=== PATIENT | female | born 1955 | race Two or more races ===

== ENCOUNTER 2022-04-28 11:45 | Outpatient (REF) | payer MEDICARE, MEDICAID, SELFPAY ==
--- NOTE | ~2022-04-28 | XR_ITS ---
EXAMINATION: XR KNEE, RIGHT CLINICAL INFORMATION: Acute pain. COMPARISON: None. TECHNIQUE: AP and lateral views of the right knee. FINDINGS: There is no evidence of acute fracture or dislocation of the right knee. There appears to be a small knee effusion. There is mild spurring at the patellofemoral joint. No destructive bony lesions are identified. XR/XR knee RT 2V IMPRESSION: Small effusion with mild patellofemoral joint degenerative change.
== END 2022-04-28 11:46 | disposition home or self-care (01) ==
LOC: HO.XRAY 11:45
PROVIDERS: PCP Pediatrics; Visit Provider Pediatrics
DX: R60.0 Localized edema (principal); M25.561 Pain in right knee
CPT/HCPCS: 73560

== ENCOUNTER 2022-06-12 08:35 | Outpatient (REF) | payer MEDICARE, MEDICAID, SELFPAY | END 2022-06-12 08:36 | disposition home or self-care (01) | LOC: HO.HOSX 08:35 | PROVIDERS: Visit Provider Physician Assistant | DX: Z13.89 Encounter for screening for other disorder (principal) ==

== ENCOUNTER 2023-07-23 08:51 | Outpatient (REF) | payer MEDICARE, MEDICAID, SELFPAY | END 2023-07-23 08:52 | disposition home or self-care (01) | LOC: HO.MAMMO 08:51 | PROVIDERS: PCP Pediatrics; Visit Provider Pediatrics | DX: Z12.31 Encounter for screening mammogram for malignant neoplasm of breast (principal) | CPT/HCPCS: 77063; 77067 ==

== ENCOUNTER → 2023-07-23 09:15 | Outpatient (BNV) | payer MEDICARE, MEDICAID, SELFPAY | PROVIDERS: PCP Pediatrics; Visit Provider Radiology Diagnostic Radiology | DX: Z12.31 Encounter for screening mammogram for malignant neoplasm of breast (principal) | CPT/HCPCS: 77063; 77067 ==

== ENCOUNTER 2023-11-19 09:04 | Outpatient (REF) | payer MEDICARE, MEDICAID, SELFPAY ==
[2023-11-19 15:28] LABS: Cholesterol 194 mg/dL (<200); HDL Cholesterol 58 mg/dL (>40); LDL Cholesterol Calculated 113 mg/dL (<100); Triglycerides 118 mg/dL (<150)
== END 2023-11-19 09:05 | disposition home or self-care (01) ==
LOC: HO.CHCLDS 09:04
PROVIDERS: Visit Provider Pediatrics
DX: I10 Essential (primary) hypertension (principal); E78.5 Hyperlipidemia, unspecified
CPT/HCPCS: 36415; 80061

== ENCOUNTER 2024-01-14 09:49 | Outpatient (REF) | payer MEDICARE, MEDICAID, SELFPAY ==
[2024-01-14 14:10] LABS: MANUAL DIFF FLAG NO
[2024-01-14 14:27] LABS: Basophils Absolute Auto 0.1 X10*3/uL (0.0-0.2); Basophils Percent Auto 0.7 % (0-2); Eosinophils Absolute Auto 1.3 X10*3/uL (0.0-0.4); Eosinophils Percent Auto 13.2 % (0-4); Hematocrit 44.1 % (37.0-47.0); Hemoglobin 13.8 g/dl (12.0-16.0); Imm Gran Abs Auto 0.04 X10*3/uL (0.00-0.03); Imm Gran Pct Auto 0.4 % (0.0-0.4); Lymphocytes Absolute Auto 2.8 X10*3/uL (1.2-4.9); Lymphocytes Percent Auto 29.3 % (20-40); Mean Corpuscular HGB Conc 31.3 g/dl (31.0-35.0); Mean Corpuscular Hemoglobin 28.5 pg (27.0-33.0); Mean Corpuscular Volume 91.1 fL (80.0-98.0); Monocytes Absolute Auto 0.8 X10*3/uL (0.1-1.2); Monocytes Percent Auto 8.3 % (2-11); Neutrophils Absolute Auto 4.6 x10*3/uL (2.0-8.3); Neutrophils Percent Auto 48.1 % (45-73); Platelet Count 325 X10*3/uL (160-400); Red Blood Count 4.84 X10*6/uL (4.20-5.50); Red Cell Distribution Width 13.5 % (11.0-16.0); White Blood Count 9.6 X10*3/uL (4.8-10.8)
[2024-01-14 14:30] LABS: Prothrombin Time 11.9 SEC (10.9-12.4)
[2024-01-14 15:41] LABS: Alanine Aminotransferase 22 U/L (0-31); Albumin Level 4.1 g/dL (3.5-5.0); Alkaline Phosphatase 100 U/L (39-117); Anion Gap 15 (12-20); Aspartate Amino Transferase 20 U/L (5-31); Bilirubin Direct 0.1 mg/dL (0.0-0.5); Bilirubin Total 0.4 mg/dL (0.0-1.0); Blood Urea Nitrogen 14 mg/dL (9-16); Calcium 9.9 mg/dL (8.4-10.2); Carbon Dioxide 24 mmol/L (22-29); Chloride 109 mmol/L (96-108); Estimated Glomerular Filt Rate > 60; Glucose Random 76 mg/dL (60-115); Potassium 4.6 mmol/L (3.3-5.1); Sodium 143 mmol/L (135-145); Total Protein 7.7 g/dL (6.5-8.0)
== END 2024-01-14 09:50 | disposition home or self-care (01) ==
LOC: HO.CHCLDS 09:49
PROVIDERS: Visit Provider Pediatrics
DX: Z01.818 Encounter for other preprocedural examination (principal); Z01.810 Encounter for preprocedural cardiovascular examination; I49.8 Other specified cardiac arrhythmias
CPT/HCPCS: 36415; 80048; 80076; 85025; 85610

== ENCOUNTER → 2024-02-08 13:35 | Outpatient (REF) | payer MEDICARE, MEDICAID, SELFPAY ==
--- NOTE | 2024-02-08 14:00 | CA_ITS ---
Transthoracic Echocardiogram Patient (Last, First, Middle): Kristen Schroeder, Gender: Female Date of : 1955 Age: 68 Procedure Date: 02/08/2024 Procedure Type: Transthoracic Echocardiogram Location: OP Height: 149.86 cm Weight: 89.81 kg BSA: 1.84 m2 Heart Rate: 63 bpm BP: 148 / 80 mmHg Shoe Ironer: SB Referring MD: Tobi Tinoco MD Symptoms: I35.8 Aortic Murmur Study Quality: Adequate w contrast ECG Rhythm: Sinus Conclusions: - The left ventricular systolic function is hyperdynamic. The visually estimated ejection fraction is >70%. - There is moderate septal asymmetric hypertrophy. - No obvious valvular pathology seen on this study. Findings Procedure Information Contrast agent, definity, is being given per protocol without apparent complications. The quality of the study was technically difficult. The study quality is limited by patients body habitus. Left Ventricle Normal left ventricular cavity size. The left ventricular systolic function is hyperdynamic. The visually estimated ejection fraction is >70%. There is no evidence of regional wall motion abnormalities. Evidence suggests grade I (mild) diastolic dysfunction. There is moderate septal asymmetric hypertrophy. Right Ventricle Normal right ventricular cavity size and systolic function. Atria Both atria are normal in size. Aortic Valve There is a normal trileaflet aortic valve. There is no aortic valve stenosis. There is no aortic valve regurgitation. Mitral Valve There is mild mitral annular calcification. There is no mitral valve regurgitation. There is no mitral valve stenosis. Pulmonic Valve The pulmonic valve is likely normal. Tricuspid Valve There is trace tricuspid valve regurgitation. Tricuspid regurgitation envelope is inadequate for calculation of right ventricular systolic pressure. Great Vessels The asc aorta is normal in size. Venous The inferior vena cava is normal in size and collapses greater than 50% with inspiration. Pericardium/Pleural There is no evidence of pericardial effusion. Prior Study Comparison No prior study available for comparison. Recommendations, Care & Conclusions No obvious valvular pathology seen on this study. Measurements 2D Linear Measurements IVSd: 1.38 0.6-0.9/0.6-1.0 cm LVIDd: 4.43 3.9-5.3/4.2-5.9 cm LVIDd Index: 2.41 2.4-3.2/2.2-3.1 cm/m2 LVIDs: 2.32 2.0-3.6 cm LVPWd: 0.72 0.7-1.1 cm LA Diam: 3.40 2.7-3.8/3.0-4.0 cm LAIDs Index: 1.85 1.5-2.3 cm/m2 LV Mass: 199.43 67-162/88-224 g LV Mass Index: 108.39 43-95/49-115 g/m2 LVOT Diam: 1.90 3.0+(-)1.3 cm 2D Systolic Function EF 4C: 75.10 >55% EF 2C: 72.30 >55% EF BiP: 74.10 >55% Mitral Valve MV Pk E: 1.11 MV PK A: 1.20 MV Decel Time: 191.00 E/A: 0.90 E'Lateral: 7.07 E'Medial: 6.20 E/E' Med: 17.90 E/E' Lat: 15.70 PHT: 56.00 MVA PHT: 3.93 Decel [place]: 5.80 Aortic Valve AoV Pk Ben: 1.68 AoV Pk Grad: 11.00 LISA: 2.16 LVOT LVOT Pk Ben: 1.28 LVOT Mn Ben: 0.84 LVOT VTI: 0.28 LVOT Pk Grad: 7.00 LVOT Mn Grad: 3.00 LVOT Diam: 1.90 LVOT Area: 2.84 Diastolic Function MV Pk E: 1.11 MV Pk A: 1.20 E/A: 0.90 E'Medial: 6.20 E/E' Med: 17.90 E' Laterial: 7.07 E/E' Lat: 15.70 Right Ventricle TAPSE (mm): 20.70 TVS' Ben: 10.30 Tricuspid Valve RA Press: 3.00 Great Vessels Aorta Sinus of Valsalva: 2.70 2.0-3.5 cm Ao Asc: 3.30 2.1-3.4 cm Pulmonary Veins Pulm Vein S/D 1.20 Pulmonary Valve PV Pk Ben: 1.15 Peak PV Grad: 5.00 Updated in Other Vendor System with Status of Final Grey Newell MD electronically signed on 02/09/2024 8:42:09 AM with status of Final
== END ==
LOC: HO.CARD 13:35
PROVIDERS: PCP Pediatrics; Visit Provider Internal Medicine
DX: I35.8 Other nonrheumatic aortic valve disorders (principal)
CPT/HCPCS: 93306; Q9957

== ENCOUNTER → 2024-02-08 14:00 | Outpatient (BNV) | payer MEDICARE, MEDICAID, SELFPAY | PROVIDERS: PCP Pediatrics; Visit Provider Internal Medicine | DX: I42.2 Other hypertrophic cardiomyopathy (principal) | CPT/HCPCS: 93306 ==

== ENCOUNTER 2024-10-09 11:59 | Outpatient (AMB) | payer MEDICARE, MEDICAID, SELFPAY ==
--- OUTSIDE RECORDS SUMMARY | 2024-10-09 12:42 | XMS_ITS | Encounter Summary ---
Author Organization [employer] Address [address] 7 [place] [address] Care Team Providers Care Program Manager Name Role Phone Jie Cordova MD Primary Care Provider [phone] Reason for Visit * Reason Onset Date Comments Appointment Request 10/06/2024 Encounter Details Date Type Department Care Team ([facility] st Contact Info) Description 10/06/2024 Telephone [facility] [address] [place] [address] Jie Cordova MD [address] [place] [id number] Appointment Request Social History Tobacco Use Types Packs/Day Years Used Date Smoking Tobacco: Never Passive Smoke Exposure: Never Smokeless Tobacco: Never Alcohol Use Standard Drinks/Week Comments Never 0 (1 standard drink = 0.6 oz pur e alcohol) Alcohol Answer Date Recorded Frequency of Alcohol Consumption Not on file 01/14/2024 Average Number of Drinks Not on file 024 Frequency of Binge Drinking Not on file 10/2023 Score 0 01/14/2024 Depression Answer Date Recorded Patient Health Questionnaire-9 Score 14 05/16/2024 Patient Health Questionnaire-9 Score 14 05/16/2024 Last PHQ-9: Questionnaire Data Not on file 0 05/16/2024 Housing Stability Answer Date Recorded What is your housing situation today? I have dilan fowler 05/16/[address] you li ve. Do you have problems with any of the following? None of the above 05/16/2024 Food Insecurity Answer Date Recorded Within the past 12 months, y ou worried that your food would run out before you got money to buy more: Sometimes True 2024 Within the past 12 months,th e food you bought just didn't last and you didn't have enough money to get more: Never True 05/16/2024 Transportation Answer Date Recorded In the past 12 months, has l ack of transportation kept you from medical appts, meetings, work or from getting things needed for daily living? No 05/16/2024 Utilities Answer Date Recorded In the past 12 months, has t he electric, gas, oil or water company threatened to shut off services in your home? No 05/16/2024 Depression Answer Date Recorded Patient Health Questionnaire-2 Score 6 05/16/2024 Internet Access Answer Date Recorded Internet Access Q1 Yes 05/16/2024 Internet Access Q2 Not on file 05/16/2024 Comments No Sex and Gender Information Value Date Recorded Sex Assigned at Female 01/05/2022 10:20 AM EDT Legal Sex Female 10:20 AM EDT Gender Identity Female 01/05/2022 10:20 AM EDT Sexual Orientation Straight 01/05/2022 10 :20 AM EDT documented as of this encounter Miscellaneous Notes * Telephone Encounter - Maria Fernanda Oglesby RN - 10/06/2024 4:24 PM EDT Noted. Patient did not go to walk-in clinic after BP visit on 10/05/24. Patient educated on importance of being evaluated d/t elevated BP and her son and patient verbally agreed to go to walk-in. They did not go on 10/05/24. * Telephone Encounter - Soni Padilla - 10/06/2024 3:01 PM EDT Tc from pt son with pt on the line. Name and confirmed. Pt requesting to follow up with PCP. Ptscheduled with PCP on 10/13. Pt agreed * Telephone Encounter - Petty Pardo - 10/06/2024 9:53 AM EDT Tc from from pt Son requesting an follow appt deu to walk in center visity from 10/05. Please contact pt at [phone] Need biology department chair Son phone (not on HIPAA) [phone] No need biology department chair documented in this encounter Plan of Treatment Upcoming Encounters Date Type Department Care Team (Late st Contact Info) Description 10/13/2024 11:15 AM EDT Office Visit [facility] [address] [place] [address] Jie Cordova MD [address] [place] [address] documented as of this encounter Goals Goal Patient Goal Type Associated Problems Recent Progress Patient-Stated? Author Blood Pressure < 150/90 Blood Pressure 182/75(2024 2:27 PM EDT) No Chester Calhoun, PharmD Note: No hx CKD/DM Patient will adhere to medication regimen General No Chester Calhoun, PharmD documented as of this encounter Visit Diagnoses Not on filedocumented in this encounter Additional Health Concerns Assessment Noted Time PHQ-9 Depression Total Score: 14 025 10:50 AM EDT documented as of this encounter Care Teams Program Manager Relationship Specialty Start Date End Date Jie Cordova MD [address] [place] [address] PCP - General Family Medicine 03/08/18 documented as of this encounter
--- OUTSIDE RECORDS SUMMARY | 2024-10-09 12:42 | XMS_ITS | Clinical Summary ---
Author Organization [facility] Address [address] [place] [address] Phone Care Team Providers Care Aviation Warfare Systems Operator Name Role Phone Jie Cordova MD Primary Care Provider [phone] Allergies Active Allergy Reactions Criticality Noted Date Comments Ibuprofen Palpitations 01/31/2024 Penicillin V Unknown 01/31/2024 Medications albuterol HFA (ProAir HFA) 90 mcg/actuation inhaler Inhale 2 puffs by mouth every 4 (four) hours if needed. 3 Active azelastine (ASTELIN) 137 mcg (0.1 %) nasal spray Administer 2 sprays into each nostril 2 (two) times a day. 2 Active budesonide (Pulmicort Flexhaler) 180 mcg/actuation inhaler Inhale 2 puffs by mouth 2 (two) times a day. 4 Active cholecalciferol (VITAMIN D-3) 25 mcg (1,000 unit) tablet Take 1 tablet (1,000 Units total) by mouth 1 (one) time each day in the morning. 4 Active dicyclomine (BENTYL) 20 mg tablet Take 1 tablet (20 mg total) by mouth 4 (four) times a day (before meals and nightly). 4 11/16/19 25 Active FLUoxetine (PROzac) 40 mg capsule Take 1 capsule (40 mg total) by mouth daily. 4 Active ipratropium-alb uteroL (DUONEB) 0.5-2.5 mg/3 mL nebulizer solution Take by nebulization 4 (four) times a day. 2 Active loratadine (CLARITIN) 10 mg tablet Take 1 tablet (10 mg total) by mouth 1 (one) time each day in the morning. 4 Active metoprolol succinate (TOPROL-XL) 100 mg 24 hr tablet Take 1 tablet (100 mg total) by mouth daily. 4 Active pantoprazole (PROTONIX) 20 mg EC tablet Take 1 tablet (20 mg total) by mouth 1 (one) time each day in the morning. 4 Active pseudoephedrine (Sudogest) 30 mg tablet Take 1 tablet (30 mg total) by mouth every 6 (six) hours if needed. 2 Active rosuvastatin (CRESTOR) 5 mg tablet Take 1 tablet (5 mg total) by mouth 1 (one) time each day in the morning. 4 Active valsartan-hydro CHLOROthiazide (DIOVAN-HCT) 160-25 mg per tablet Take 1 tablet by mouth daily. 4 Active gabapentin (Neurontin) 400 mg capsule Take 1 capsule (400 mg total) by mouth 2 (two) times a day. 60 each 4 Active povidone-iodine (Betadine) 10 % topical solution Apply topically 1 (one) time each day. 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 Surgical History Surgery Date Site/Laterality Comments NO PAST SURGERIES Medical History Medical History Date Comments Hypertension Hyperlipidemia Asthma Achilles rupture, right Social History Tobacco Use Types Packs/Day Years Used Date Smoking Tobacco: Never Smokeless Tobacco: Never Tobacco Cessation:Counseling Given: Not Answered Alcohol Use Standard Drinks/Week Comments Never 0 (1 standard drink = 0.6 oz pur e alcohol) Interpersonal Safety Answer Date Record ed Physical Abuse 02/11/2024 Verbal Abuse 02/11/2024 Comments No Sex and Gender Information Value Date Recorded Sex Assigned at Female 02/11/2024 7:57 AM EST Legal Sex Female 11:06 AM EDT Gender Identity Female 02/11/2024 7:57 AM EST Sexual Orientation Straight 02/11/2024 7: 57 AM EST Obstetrics History Last Filed Vital Signs Vital Sign Reading Time Taken Comments Blood Pressure 129/56 02/11/2024 12:20 PM EST Pulse 71 02/11/2024 12:20 PM EST Temperature 36.5 C (97.7 F) 02/11/2024 12:20 PM EST Respiratory Rate 18 02/11/2024 12:20 PM EST Oxygen Saturation 95% 02/11/2024 12:20 PM EST Inhaled Oxygen Concentration - - Weight 84.4 kg (186 lb) 05/25/2024 1:56 PM EDT Height 157.5 cm (5' 2.01 ) 04/06/2024 2:50 PM ES T Body Mass Index 34.01 04/06/2024 2:50 PM EST Plan of Treatment Health Maintenance Due Date Last Done Comments Breast Cancer Screening 1955 Zoster Vaccines (1 of 2) 2004 RSV Immunization Adult Patients (1 - Risk 60-74 years 1-dose series) 2014 Colorectal Cancer Screening: Colonoscopy 09/30/2023 Hepatitis C Screening 09/30/2023 Medicare Annual Wellness Visit 09/30/2023 Osteoporosis Screening (Bone Density Screening) 09/30/2023 Social Influencers of Health Screening 09/30/2023 COVID-19 Vaccine ( season) 2023 02/10/2021, 06/28/2020, 05/31/2020 Depression Screening 03/08/2024 Influenza Vaccine (#1) 2024 , 01/15/2023, 01/15/2022, Additional history exists Hypertension/CHF/CAD Annual BMP Blood Test 01/13/2025 01/14/2024 Falls Risk Assessment 02/10/2025 02/11/2024 Cholesterol Screening (Lipid Panel) 11/18/2028 11/19/2023 DTaP,Tdap,and Td Vaccines (2 - Td or Tdap) 01/17/2029 01/17/2019 Pneumococcal Vaccine: 50+ Years Completed 04/30/2022 HIB Vaccines Aged Out No longer eligi ble based on patient's age to complete this topic HPV Vaccines Aged Out No longer eligi ble based on patient's age to complete this topic Hepatitis A Vaccines Aged Out No long er eligible based on patient's age to complete this topic Hepatitis B Vaccines Aged Out No long er eligible based on patient's age to complete this topic IPV Vaccines Aged Out No longer eligi ble based on patient's age to complete this topic MMR Vaccines Aged Out No longer eligi ble based on patient's age to complete this topic Meningococcal ACWY Vaccine Aged Out N o longer eligible based on patient's age to complete this topic Meningococcal B Vaccine Aged Out No l onger eligible based on patient's age to complete this topic RSV Immunization Patients Under 20 months Aged Out No longer eligible based on patient's age to complete this topic Varicella Vaccines Aged Out No longer eligible based on patient's age to complete this topic Medical Devices Implanted Type Area Hotel Lobby Concierge Device Identifier Shelf Expiration Date Model / Serial / Lot Implant Bioinductive W/Arth Del Med - Sn/A - [id number] Implanted:Qty: 1 on 02/11/2024 by Kevan Rogers DPM at [facility] [employer] Right: Achilles Tendon [employer] - ENDOSCOPY 10/07/2026 [id number] / N/A / [id number] Insurance MEDICARE MEDICAID - [place] Care Teams Aviation Warfare Systems Operator Relationship Specialty Start Date End Date Jie Cordova MD [address] [place] [address] [phone] PCP - General 06/04/23
--- NOTE | 2024-10-09 13:15 | MHC.OFFWIV ---
Intake Vital Signs 10/09/24 13:17 Height 5 ft 1 in Weight 188 lb 8 oz BMI 35.6 BP 158/76 H Blood Pressure Location Lt brachial Position Sitting Pulse 62 Pulse Source Pulse Oximeter Temp 97.6 F Temp Source Oral Pulse Oximetry (%) 96 Oxygen Delivery Method Room Air Intake Visit Reasons: MARKETING RESEARCHER-sob Allergies Penicillins Allergy (Severe, Verified 10/09/24 13:21) Rash Do you need a note to return to daycare/school/sports/work: No HPI HPI Comments History of Present Illness Details Moldovan video interpeter declined, she wants her son to interpret. History - The patient is a 68-year-old female presenting with respiratory distress and wheezing. - Respiratory distress for one week with congestion and difficulty breathing. - Persistent wheezing and shortness of breath despite inhaler use. - Ellipta inhaler used twice daily with no significant relief. - History of prednisone use during exacerbations. - Cough productive of clear mucus, no fever, sinus pain, or ear pain. Physical Exam General: Cooperative, healthy appearing, comfortable and no acute distress Orientation/consciousness: Patient oriented x3 Limitations: No limitations Head: Normal to inspection Ears: Hearing grossly normal bilaterally, external ears normal and TM's normal bilaterally Nose: Normal external nose present, Normal nares present and No nasal discharge present Face and sinus: Normal facial exam and Yes sinuses nontender Mouth: Normal oral and palatal mucosa present and moist mucous membranes Throat: Yes tonsils normal, Yes uvula midline. Posterior oropharynx erythema, no exudates Eyes: Appearance normal, both eyes and all related structures Neck: Normal visual inspection, full ROM Respiratory: exp wheezing bilaterally. Normal respiratory effort, able to speak in complete sentences, not actively coughing, no respiratory distress, not tachypneic, no tripod positioning and no use of accessory muscles Cardiovascular: Regular rate and rhythm. Normal S1 and S2 Skin: No rashes or lesions noted Neuro: Patient oriented x3 Extremities: Normal to inspection and Yes no clubbing, cyanosis or edema Review of Systems Const All systems reviewed & are unremarkable except as noted in HPI and below Physical Exam Vital Signs: Last Vital Signs Temp 97.6 F 10/09/24 13:17 Pulse 62 10/09/24 13:17 BP 158/76 H 10/09/24 13:17 Pulse Ox 96 10/09/24 13:17 Oxygen Delivery Method Room Air 10/09/24 13:17 BMI result Body Mass Index 35.6 Assessment & Plan Assessment & Plan (1) URI, acute: Code(s): J06.9 - Acute upper respiratory infection, unspecified Plan: Plan - VSS, pt well appearing and PE remarkable for exp wheezes. - Prednisone 40 mg daily for 5 days, start next morning. - Start Z-Jak tonight for anti-inflammatory and antibiotic effect. - Return if symptoms worsen for possible chest x-ray. Patient was informed and verbally consented to the use of an ambient scribe for clinic note documentation during this visit (2) Asthma exacerbation, mild: Code(s): J45.901 - Unspecified asthma with (acute) exacerbation Plan: as above Medications: New azithromycin For 250 mg dose pack: take 500 mg today (day 1), then 250 mg for 4 days (days 2-5) PO 6 tabs 0RF prednisone 40 mg (2 x 20 mg) PO QAM 10 tabs 0RF Coding Level of Care Code New Pt Level 3 (17168) Diagnoses URI, acute J06.9 Asthma exacerbation, mild J45.901
[2024-10-09 13:17] VITALS: BP 158/76; PULSE 62; TEMP 36.4; O2SAT 96; BMI 35.6
== END 2024-10-09 14:09 | disposition home or self-care (01) ==
PROVIDERS: PCP Pediatrics; Visit Provider Physician Assistant
DX: J06.9 Acute upper respiratory infection, unspecified (principal); J45.901 Unspecified asthma with (acute) exacerbation

== ENCOUNTER → 2024-10-09 11:59 | Outpatient (BNVA) | payer MEDICARE, MEDICAID, SELFPAY | PROVIDERS: PCP Pediatrics; Visit Provider Physician Assistant | DX: J06.9 Acute upper respiratory infection, unspecified (principal); J45.901 Unspecified asthma with (acute) exacerbation | CPT/HCPCS: 99202 ==

== ENCOUNTER 2024-12-19 12:58 | Outpatient (REF) | payer MEDICARE, MEDICAID, SELFPAY ==
--- NOTE | ~2024-12-19 | XR_ITS ---
EXAMINATION: XR CHEST CLINICAL INFORMATION: rule out pneumonia COMPARISON: None available. TECHNIQUE: 2 views of the chest were obtained. FINDINGS: The cardiac, hilar, and mediastinal contours are normal. Aortic mural calcifications. Lungs demonstrate mild prominence of the background interstitial markings, with peribronchial thickening noted in the hilar regions suggesting small airways disease. There is no discrete consolidation or focal pneumonia. There is no pneumothorax or pleural effusion. There is no focal osseous or soft tissue abnormality. There are degenerative changes in the spine with a mildly exaggerated thoracic kyphosis. XR/XR chest 2V IMPRESSION: 1. Mild prominence of the background interstitial markings with evidence of small airway thickening suggesting inflammatory airways disease. No discrete focal pneumonia. Electronically signed by: Sudheer Hernandez MD 12/19/2024 04:12 PM EDT
--- OUTSIDE RECORDS SUMMARY | 2024-12-19 11:15 | XMS_ITS | Encounter Summary ---
Author Organization [employer] Address [address] [place] [id number] Care Team Providers Care Nurse School Name Role Phone Jie Cordova MD Primary Care Provider [phone] Reason for Referral * Consultation (Urgent) - Pending Review Specialty Diagnoses / Procedures Referred By Contac t Referred To Contact Pulmonary Disease Diagnoses Severe persistent asthma with exacerbation (HCC) Jie Cordova MD [address] [place] [address] Phone: tel: fax: Referral ID Status Reason Start Date Expiration Date Visits Requested Visits Authorized [id number] Pending Review Specialty Services Required 12/19/2025 1 1 Encounter Details Date Type Department Care Team ([facility] st Contact Info) Description 12/19/2024 11:15 AM EDT Office Visit [facility] [address] [place] [address] Jie Cordova MD [address] [place] [address] Severe persistent asthma with exacerbation (HCC) (Primary Dx); Benign essential hypertension Social History Tobacco Use Types Packs/Day Years [...] AM EDT documented as of this encounter Last Filed Vital Signs Vital Sign Reading Time Taken Comments Blood Pressure 150/90 12/19/2024 11:24 AM EDT Pulse 67 12/19/2024 11:24 AM EDT Temperature - - Respiratory Rate 20 12/19/2024 11:24 AM EDT Oxygen Saturation 96% 12/19/2024 11:24 AM EDT Inhaled Oxygen Concentration - - Weight 84.4 kg (186 lb) 12/19/2024 11:24 AM EDT Height - - Body Mass Index 40.25 05/16/2024 10:02 AM EDT documented in this encounter Progress Notes * Jie Cordova MD - 12/19/2024 11:15 AM EDT Subjective Patient ID: Kristen Peoples is a 69 y.o. female who presents for sick visit. Kristen is a 69 y/o female patient of ours with severe persistent asthma , hypertension, obesity, dyslipidemia,etc.. here as a walk in sick visit for severe asthma attack. Was seen at a local urgent care and given 5 days of prednisone per patient about 2-3 weeks ago.No imaging studies done. States takes care of grand kids and one of them had a runny nose. Wheezing This is a recurrent problem. The current episode started 1 to 4 weeks ago. The problem occurs constantly. The problem has been unchanged. Associated symptoms include coughing, rhinorrhea, shortness of breath and sputum production. Pertinent negatives include no abdominal pain, chest pain, chills, ear pain, fever, headaches, hemoptysis, neck pain, rash, sore throat or vomiting. The symptoms are aggravated by any activity, URIs and weather changes. She has tried beta agonist inhalers, rest and steroid inhaler (used nebulized albuterol and steroid inhalers) for the symptoms. The treatment provided mild relief. Review of Systems Constitutional: Negative for activity change, chills, fever and unexpected weight change. HENT: Positive for rhinorrhea. Negative for ear pain and sore throat. Respiratory: Positive for cough, sputum production, shortness of breath and wheezing. Negative for hemoptysis. Cardiovascular: Negative for chest pain, palpitations and leg swelling. Gastrointestinal: Negative for abdominal pain, blood in stool and vomiting. Endocrine: Negative for polydipsia and polyuria. Genitourinary: Negative for decreased urine volume, difficulty urinating, dysuria and hematuria. Musculoskeletal: Negative for arthralgias, gait problem and neck pain. Skin: Negative for color change and rash. Neurological: Negative for dizziness and headaches. Hematological: Negative for adenopathy. Psychiatric/Behavioral: Negative for dysphoric mood, hallucinations, sleep disturbance and suicidalideas. The patient is not nervous/anxious. Objective BP (!) 150/90 (BP Location: Left arm, Patient Position: Sitting, BP Cuff Size: Adult) Pulse 67 Resp 20 Wt 186 lb (84.4 kg) SpO2 96% BMI 40.25 kg/m?? Physical Exam Constitutional: General: She is not in acute distress. Appearance: Normal appearance. She is not ill-appearing. HENT: Head: Normocephalic. Right Ear: Tympanic membrane and ear canal normal. Left Ear: Tympanic membrane and ear canal normal. Nose: Nose normal. Mouth/Throat: Mouth: Mucous membranes are moist. Pharynx: No oropharyngeal exudate or posterior oropharyngeal erythema. Eyes: Extraocular Movements: Extraocular movements intact. Conjunctiva/sclera: Conjunctivae normal. Pupils: Pupils are equal, round, and reactive to light. Cardiovascular: Rate and Rhythm: Normal rate and regular rhythm. Pulses: Normal pulses. Heart sounds: Normal heart sounds. No murmur heard. Pulmonary: Effort: Pulmonary effort is normal. Prolonged expiration present. No accessory muscle usage, respiratory distress or retractions. Breath sounds: Examination of the right-upper field reveals wheezing. Examination of the left-upperfield reveals wheezing. Examination of the right- middle field reveals wheezing. Examination of the left-middle field reveals wheezing. Examination of the left-lower field reveals wheezing. Wheezing and rhonchi present. Abdominal: Palpations: Abdomen is soft. Musculoskeletal: General: Normal range of motion. Cervical back: Normal range of motion. Right lower leg: No edema. Left lower leg: No edema. Skin: General: Skin is warm. Capillary Refill: Capillary refill takes less than 2 seconds. Findings: No rash. Neurological: General: No focal deficit present. Mental Status: She is alert and oriented to person, place, and time. Mental status is at baseline. Psychiatric: Mood and Affect: Mood normal. Behavior: Behavior normal. Thought Content: Thought content normal. Judgment: Judgment normal. Assessment/Plan Diagnoses and all orders for this visit: Severe persistent asthma with exacerbation ([facility]) Comments: Recieved duoneb plus oral prednisone in office today,felt somewhat improved,stat CXR ordered .Son will take her for stat chest x-ray and I will call them with results.Azithro plus prdnisone taper sent to [facility] pharmacy.Inhalers sorted out for patient,continue arnuity.Referral to pulmonary done. Orders: - ipratropium-albuterol (Duo-Neb) 0.5-2.5 mg/3 mL nebulizer solution 3 mg - predniSONE (Deltasone) tablet 60 mg - XR Chest 2 Views; Future - POCT Rapid Covid-19 BinaxNOW - POCT Rapid Influenza A OSOM - POCT Rapid Influenza B OSOM - Respiratory Viral Panel PCR - Referral to Pulmonology; Future Benign essential hypertension Other orders - albuterol (2.5 MG/3ML) 0.083% nebulizer solution; Take 3 mL (2.5 mg) by nebulization every 6 (six) hours if needed for wheezing. - predniSONE (Deltasone) 20 MG tablet; Take 2 tabs orally daily for 4 days then 1 tab orally daily for 4 days - azithromycin (Zithromax) 250 MG tablet; Take 2 tabs orally on day 1 , then 1 tab orally for 4 more days documented in this encounter Plan of Treatment Scheduled Orders Name Type Priority Associated Diagnoses Orde r Schedule XR Chest 2 Views Imaging Urgent Severe persistent asthma with exacerbation (HCC) Expected: 12/19/2024, Expires: 12/19/2025 Scheduled Referrals Name Type Priority Associated Diagnoses Orde r Schedule Referral to Pulmonology Outpatient Referral Urgent Severe persistent asthma with exacerbation (HCC) Expected: 12/19/2024 (Approximate), Expires: 12/19/2025 documented as of this encounter Goals Goal Patient Goal Type Associated Problems Recent Progress Patient-Stated? Author Blood Pressure < 150/90 Blood Pressure 150/90(2024 11:24 AM EDT) No Chester Calhoun, PharmD Note: No hx CKD/DM Patient will adhere to medication regimen General No Chester Calhoun, PharmD documented as of this encounter Procedures Procedure Name Priority Date/Time Associated Diagnosis Comments POCT INFLUENZA B Routine 12/19/2024 11:3 8 AM EDT Severe persistent asthma with exacerbation (HCC) POCT RAPID COVID ANTIGEN Routine 12/19/2024 11:37 AM EDT Severe persistent asthma with exacerbation (HCC) POCT INFLUENZA A Routine 12/19/2024 11:3 7 AM EDT Severe persistent asthma with exacerbation (HCC) RESPIRATORY VIRAL PANEL PCR Routine 12/19/2024 11:20 AM EDT Severe persistent asthma with exacerbation (HCC) documented in this encounter Results * POCT Rapid Influenza B OSOM (12/19/2024 11:38 AM EDT) [facility] Rapid Influenza B Ag Negative Negative, Indeterminate Swab 12/19/2024 11:3 8 AM EDT us Jie Cordova MD POINT OF CARE TEST ENTER/EDIT ORDERABLES Final Result * POCT Rapid Influenza A OSOM (12/19/2024 11:37 AM EDT) [facility] Rapid Influenza A Ag Negative Negative, Indeterminate Swab Nasopharyngeal structure / Unknown 12/19/2024 11:37 AM EDT us Jie Cordova MD POINT OF CARE TEST ENTER/EDIT ORDERABLES Final Result * POCT Rapid Covid-19 BinaxNOW (12/19/2024 11:37 AM EDT) [facility] Rapid COVID Ag Negative Swab 12/19/2024 11:3 7 AM EDT us Jie Cordova MD POINT OF CARE TEST ENTER/EDIT ORDERABLES Final Result * (ABNORMAL) Respiratory Viral Panel PCR (12/19/2024 11:20 AM EDT) [facility] Adenovirus PCR Not Detected Not Detect. [facility] Bordetella pertussis PCR Not Detected Not Detect. [facility] Comment:Interpret results wi th caution. If B. pertussis isspecifically suspected, additional testing using analternate method is recommended. Bordetella parapertussis PCR Not Detected Not Detect. [facility] Chlamydia pneumoniae PCR Not Detected Not Detect. [facility] Coronavirus 229E PCR Not Detected Not Detect. [facility] Coronavirus HKU1 PCR Not Detected Not Detect. [facility] Coronavirus NL63 PCR Not Detected Not Detect. [facility] Coronavirus OC43 PCR Not Detected Not Detect. [facility] SARS-CoV-2 PCR Not Detected Not Detect. [facility] Comment:SARS-CoV-2 not detec grayson by real-time RT-PCR.Note: If clinical suspicion for Sars-CoV-2 is high, continueto maintain precautions and consider repeat testing.Test results should be interpreted in the context ofclinical findings and other laboratory data.Rare polymorphisms exist that could lead to false-negativeor false-positive results. If results do not match theclinical findings, additional testing should be considered.Results reported to VERONICA GARCIA.This test has been authorized by the FDA under the EmergencyUse Authorization (EUA) for use by authorized laboratories. Influenza A PCR Not Detected Not Detect. [facility] Influenza A Subtype H1 Not Detected Not Detect. [facility] Influenza A H1-2009 PCR Not Detected Not Detect. [facility] Influenza A Subtype H3 Not Detected Not Detect. [facility] Influenza B PCR Not Detected Not Detect. [facility] Human metapneumovirus PCR Not Detected Not Detect. [facility] Rhino/Enterovirus PCR Detected(A) Not Detect. [facility] Mycoplasma pneumoniae PCR Not Detected Not Detect. [facility] Parainfluenza 1 PCR Not Detected Not Detect. [facility] Parainfluenza 2 PCR Not Detected Not Detect. [facility] Parainfluenza 3 PCR Not Detected Not Detect. [facility] Parainfluenza 4 PCR Not Detected Not Detect. [facility] RSV PCR Not Detected Not Detect. [facility] Resp Panel NA Note See Note [facility] Comment:All results must be correlated with clinical findings.Negative results should not be used as the sole basis fordiagnosis, treatment, or other management decisions.A negative result does not exclude the possibility of viralor bacterial infection. Negative results may occur from thepresence of sequence variants in the region targeted by theassay, the presence of inhibitors, an infection caused by anorganism not detected by the panel, or lower respiratorytract infections that are not detected by a nasopharyngealswab specimen. Test results may also be affected byconcurrent antiviral/antibacterial therapy or levels oforganism in the specimen that are below the limit ofdetection for this test.This assay is performed by Multiplexed PCR, utilizing [employer]. Swab 12/19/2024 11:2 0 AM EDT 12/19/2024 2:03 PM EDT us Jie Cordova MD LAB BLOOD ORDERABLES Final Re sult [facility] [address] [place] [address] [phone] documented in this encounter Visit Diagnoses Diagnosis Severe persistent asthma with exacerbation (HCC)- Primary Unspecified asthma, with exacerbation Benign essential hypertension Essential hypertension, benign documented in this encounter Administered Medications Active Administered Medications - up to 3 most recent administrations Medication Order MAR Action Action Date Dose Rate Site predniSONE (Deltasone) tablet 60 mg 60 mg, Oral, Daily, First dose on Wed12/19/24 at 1130Indications:Severe persistent asthma with exacerbation (HCC) Given 12/19/2024 11:30 AM EDT 60 mg Inactive Administered Medications - up to 3 most recent administrations Medication Order MAR Action Action Date Dose Rate Site ipratropium-albuterol (Duo-Neb) 0.5-2.5 mg/3 mL nebulizer solution 3 mg 3 mg, Nebulization, Once, On Wed12/19/24 at 1130, For 1 doseIndications:Severe persistent asthma with exacerbation (HCC) Given 12/19/2024 11:30 AM EDT 3 mg documented in this encounter Additional Health Concerns Assessment Noted Time PHQ-9 Depression Total Score: 14 025 10:50 AM EDT documented as of this encounter Care Teams Nurse School Relationship Specialty Start Date End Date Jie Cordova MD [address] [place] [address] PCP - General Family Medicine 03/08/18 documented as of this encounter
[2024-12-19 15:20] LABS: Chlamydia pneumoniae PCR Not Detected (Not Detect.); Coronavirus 229E PCR Not Detected (Not Detect.); Coronavirus HKU1 PCR Not Detected (Not Detect.); Coronavirus NL63 PCR Not Detected (Not Detect.); Coronavirus OC43 PCR Not Detected (Not Detect.); RSV PCR Not Detected (Not Detect.); Rhino/Enterovirus PCR Detected (Not Detect.)
[2024-12-19 15:27] LABS: Influenza A H1 PCR Not Detected (Not Detect.); Influenza A H1-2009 PCR Not Detected (Not Detect.); Influenza A H3 PCR Not Detected (Not Detect.); SARS-CoV-2 PCR Not Detected (Not Detect.)
--- OUTSIDE RECORDS SUMMARY | 2024-12-19 15:40 | XMS_ITS | Encounter Summary ---
Author Organization [employer] Address [address] [place] [address] Care Team Providers Care Measurement And Verification Engineer Name Role Phone Jie Cordova MD Primary Care Provider [phone] Reason for Visit * Reason Onset Date Comments Nurse Triage 11/23/2022 Encounter Details Date Type Department Care Team ([facility] st Contact Info) Description 11/23/2022 Telephone [facility] [address] [place] [address] Jie Cordova MD [address] [place] [address] Nurse Triage Social History Tobacco Use Types Packs/Day Years Used Date Smoking Tobacco: Never Smokeless Tobacco: Never Alcohol Use Standard Drinks/Week Comments Never 0 (1 standard drink = 0.6 oz pur e alcohol) Depression Answer Date Recorded Patient Health Questionnaire-9 Score 4 04/28/2022 Depression Answer Date Recorded Patient Health Questionnaire-2 Score 1 04/28/2022 Comments Unknown Sex and Gender Information Value Date Recorded Sex Assigned at Female 01/05/2022 10:20 AM EDT Legal Sex Female 10:20 AM EDT Gender Identity Female 01/05/2022 10:20 AM EDT Sexual Orientation Straight 01/05/2022 10 :20 AM EDT documented as of this encounter Miscellaneous Notes * Telephone Encounter - Matilde To RN - 11/23/2022 10:35 AM EDT Triage call attempted x2 with Mobile Security Tech ID [id number] Pt didn't answer. Left voice message x2to call [facility] [phone]. Attempted to contact Pt with Mobile Security Tech ID [id number], Pt didn't answer. Left voice message tocall [facility] [phone] * Telephone Encounter - Betzy Fabio - 11/23/2022 10:04 AM EDT Symptoms: Sinus Symptoms, Fever Outcome: Schedule an urgent appointment (within 1 hour) or talk to a nurse or provider soon Reason: Severe headache The caller accepted this outcome Please contact pt at [phone] (Romansh) documented in this encounter Plan of Treatment Not on file documented as of this encounter Goals Goal Patient Goal Type Associated Problems Recent Progress Patient-Stated? Author Blood Pressure < 150/90 Blood Pressure 150/90(2024 11:24 AM EDT) No Chester Calhoun, PharmD Note: No hx CKD/DM Patient will adhere to medication regimen General No DelChester dasilva, PharmD documented as of this encounter Visit Diagnoses Not on filedocumented in this encounter Additional Health Concerns Assessment Noted Time PHQ-9 Depression Total Score: 4 04/28/19 23 1:05 PM EST documented as of this encounter Care Teams Measurement And Verification Engineer Relationship Specialty Start Date End Date Jie Cordova MD [address] [place] [id number] PCP - General Family Medicine 03/08/18 documented as of this encounter
--- OUTSIDE RECORDS SUMMARY | 2024-12-19 15:40 | XMS_ITS | Encounter Summary ---
Author Organization [employer] Address [address] [facility] [address] [place] [address] Care Team Providers Care Division Order Technician Name Role Phone Jie Cordova MD Primary Care Provider [phone] Encounter Details Date Type Department Care Team (Latest Contact Info) Description 12/19/2024 Travel Social History Tobacco Use Types Packs/Day Years [...] AM EDT documented as of this encounter Plan of Treatment Not on [...] documented as of this encounter Care Teams Division Order Technician Relationship Specialty Start Date End Date Jie Cordova MD [address] [place] [phone] PCP - General Family Medicine 03/08/18 documented as of this encounter
--- OUTSIDE RECORDS SUMMARY | 2024-12-19 15:41 | XMS_ITS | Clinical Summary ---
Author Organization [employer] Address [address] [place] [address] [address] [place] [address] Care Team Providers Care Sales Agent Name Role Phone Jie Cordova MD Primary Care Provider [phone] Allergies Active Allergy Reactions Criticality Noted Date Comments Ibuprofen Palpitations Low 01/31/2024 Penicillin V Unknown Medications ProAir HFA 108 (90 Base) MCG/ACT inhalerIndicati ons:Moderate persistent asthma without complication INHALE TWO PUFFS EVERY 6 HOURS NEEDED SHORTNESS OF BREATH. 8.5 g 3 023 Active Azelastine HCl 137 MCG/SPRAY solution USE TWO SPRAYS IN EACH NOSTRIL TWICE DAILY Active ipratropium-alb uterol (Duo-Neb) 0.5-2.5 mg/3 mL nebulizer solution inhale 3 milliliter by nebulization route 4 times every day Active SudoGest 30 MG tablet TAKE ONE TABLET BY MOUTH EVERY TWELVE HOURS NEEDED Active Blood Pressure Monitoring (BP Monitor-[employer] cope) kitIndications: Benign essential hypertension 1 kit in the morning. 1 kit 023 Active melatonin 5 MG tablet TAKE TWO TABLETS EVERY DAY AT BEDTIME 60 tablet 11 024 Active loratadine (Claritin) 10 MG tablet TAKE ONE TABLET EVERY MORNING 30 tablet 11 024 Active metoprolol succinate XL (Toprol-XL) 100 MG 24 hr tablet TAKE ONE TABLET EVERY MORNING 30 tablet 11 025 Active FLUoxetine (PROzac) 40 MG capsule TAKE ONE CAPSULE EVERY NIGHT AT BEDTIME 30 capsule Active albuterol 108 (90 Base) MCG/ACT inhaler Inhale 2 puffs every 4 (four) hours if needed for wheezing. 18 g 025 2025 Active rosuvastatin (Crestor) 5 MG tablet TAKE ONE TABLET EVERY MORNING 30 tablet 5 Active cholecalciferol (Vitamin D-3) 25 MCG tabletIndicatio ns:Vitamin D deficiency TAKE ONE TABLET EVERY MORNING 90 tablet 1 Active dicyclomine (Bentyl) 20 MG tablet TAKE ONE TABLET THREE TIME DAILY IN THE MORNING, AT NOON, AND IN THE EVENING BEFORE MEALS and EVERY NIGHT AT BEDTIME 120 tablet Active valsartan-hydro CHLOROthiazide (Diovan-HCT) 160-25 MG tablet Take 1 tablet by mouth Once per day. 30 tablet Active fluticasone furoate (Arnuity Ellipta) 100 MCG/ACT inhaler Inhale 1 puff Once per day. Rinse mouth with water after use to reduce aftertaste and incidence of candidiasis. Do not swallow. 1 each 025 2025 Active pantoprazole (ProtoNix) 20 MG EC tabletIndicatio ns:Gastroesopha geal reflux disease without esophagitis TAKE ONE TABLET EVERY MORNING 30 tablet 3 Active simethicone (Mylicon) 125 MG chewable tabletIndicatio ns:Mild persistent asthma without complication,Mi xed anxiety and depressive disorder CHEW ONE TABLET IN THE MORNING AND EVENING BEFORE BREAKFAST AND BEFORE SUPPER 60 tablet 3 Active albuterol (2.5 MG/3ML) 0.083% nebulizer solution Take 3 mL (2.5 mg) by nebulization every 6 (six) hours if needed for wheezing. 75 mL Active predniSONE (Deltasone) 20 MG tablet Take 2 tabs orally daily for 4 days then 1 tab orally daily for 4 days 10 tablet Active azithromycin (Zithromax) 250 MG tablet Take 2 tabs orally on day 1 , then 1 tab orally for 4 more days 6 tablet Active pantoprazole (ProtoNix) 20 MG EC tabletIndicatio ns:Gastroesopha geal reflux disease without esophagitis TAKE ONE TABLET EVERY MORNING 30 tablet 3 025 2024 Discontinued simethicone (Mylicon) 125 MG chewable tabletIndicatio ns:Mild persistent asthma without complication,Mi xed anxiety and depressive disorder CHEW ONE TABLET IN THE MORNING AND EVENING BEFORE BREAKFAST AND BEFORE SUPPER 60 tablet 3 025 2024 Discontinued budesonide (Pulmicort Flexhaler) 180 MCG/ACT inhalerIndicati ons:Mild persistent asthma without complication,Mi xed anxiety and depressive disorder INHALE TWO PUFFS BY MOUTH TWICE DAILY IN THE MORNING AND AT BEDTIME RINSE MOUTH AFTER USE 1 each 2024 Discontinued(C ost of medication) albuterol (2.5 MG/3ML) 0.083% nebulizer solution Take 3 mL (2.5 mg) by nebulization every 6 (six) hours if needed for wheezing. 75 mL 2024 Discontinued(R eorder (will not trigger notification to Pharmacy)) predniSONE (Deltasone) 10 MG tablet Take 6 tablets (60 mg) by mouth Once per day for 3 days, THEN 5 tablets (50 mg) Once per day for 3 days, THEN 4 tablets (40 mg) Once per day for 3 days, THEN 3 tablets (30 mg) Once per day for 3 days, THEN 2 tablets (20 mg) Once per day for 3 days, THEN 1 tablet (10 mg) Once per day for 3 days. 63 tablet 025 2024 Hospital, Clinic, or Other Facility Administered Medication Ordered Dose Route Frequency Start Date End Date Status predniSONE (Deltasone) tablet 50 mgIndications:Exacer bation of persistent asthma, unspecified asthma severity 50 mg PO Daily 05/16/2024 Active predniSONE (Deltasone) tablet 60 mgIndications:Severe persistent asthma with exacerbation (HCC) 60 mg PO Daily 12/19/2024 Active ipratropium-albutero l (Duo-Neb) 0.5-2.5 mg/3 mL nebulizer solution 3 mgIndications:Severe persistent asthma with exacerbation (HCC) 3 mg NEBULIZATION Once 12/19/2024 12/19/2024 Ended Active Problems Problem Noted Date Diagnosed Date Moderate persistent asthma with exacerbation Partial tear of Achilles tendon, right, initial encounter 02/09/2024 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 Discussed blood work results, discussed to hold NSAID/aspirin or any other otc remedies, she is cleared for surgery Heart murmur, aortic 01/17/2024 Assessment & Plan (01/17/2024 10:44 AM EST): Will order echocardiogram, she is asymptomatic, Primary insomnia 04/12/2018 Dyslipidemia 04/22/2017 Severe persistent allergic asthma 05/08/2016 Asthma 04/21/2012 Benign essential hypertension 02/05/2011 Allergic rhinitis 11/19/2010 Anxiety state 11/19/2010 Obesity 11/19/2010 Pain in joint involving lower leg 05/09/2010 Mixed anxiety and depressive disorder 04/04/2010 Encounters Date Type Department Care Team Description 12/19/2024 11:15 AM EDT Office Visit [facility] [address] [place] [address] Jie Cordova MD Severe persistent asthma with exacerbation (HCC) (Primary Dx); Benign essential hypertension 12/19/2024 Travel 11/20/2024 Refill [facility] [address] [place] [address] Jie Cordova MD Gastroesophageal reflux disease without esophagitis; Mild persistent asthma without complication; Mixed anxiety and depressive disorder 11/17/2024 Telephone [facility] [address] [place] [address] Jie Cordova MD Chart Prep 11/14/2024 Telephone [facility] [address] [place], [place] [phone] Jie Cordova MD No Show 11/13/2024 Telephone [facility] [address] [place] [address] Jie Cordova MD Chart Prep 11/01/2024 2:00 PM EDT Office Visit [facility] [address] [place] [address] Hemalatha Borrego MD Moderate persistent asthma with exacerbation (Primary Dx) 11/01/2024 Travel 10/31/2024 Telephone [facility] [address] [place] [address] Jie Cordova MD Nurse Triage 10/06/2024 Telephone [facility] [address] [place] [address] Jie Cordova MD Appointment Request 10/05/2024 Telephone [facility] [address] [place] [address] Jie Cordova MD 10/05/2024 Refill [facility] [address] [place] [address] Jie Cordova MD from Last 3 Months Immunizations Immunization Administration Dates Next Due Influenza High-dose Quadriva lent Preservative Free 01/15/2023,01/15/2022 Influenza injectable quadriv alent IIV4 with preservative 01/17/2019,12/02/2017,04/22/2017 Influenza, High Dose Seasona l, Preservative Free 11/16/2023 Influenza, IIV3, injectable 01/24/2014 Influenza, Split (incl. juan luis f[place] antigen) 11/30/2011 Moderna Covid-19 Vaccine 12+ 02/10/2021,06/29/19 21,05/31/2020 Pneumococcal Conjugate PCV 20 04/30/2022 Tdap 01/17/2019 Social History Tobacco Use Types Packs/Day Years Used Date Smoking Tobacco: Never Passive Smoke Exposure: Never Smokeless Tobacco: Never Tobacco Cessation:Counseling Given: [...] Orientation Straight 01/05/2022 10 :20 AM EDT Last Filed Vital Signs Vital Sign Reading Time Taken Comments Blood Pressure 150/90 12/19/2024 11:24 AM EDT Pulse 67 12/19/2024 11:24 AM EDT Temperature 36.3 C (97.3 F) 11/01/2024 2:13 PM EDT Respiratory Rate 20 12/19/2024 11:24 AM EDT Oxygen Saturation 96% 12/19/2024 11:24 AM EDT Inhaled Oxygen Concentration - - Weight 84.4 kg (186 lb) 12/19/2024 11:24 AM EDT Height 144.8 cm (4' 9 ) 05/16/2024 10:02 AM EDT Body Mass Index 40.25 05/16/2024 10:02 AM EDT Plan of Treatment Health Maintenance Due Date Last Done Comments CT Colonography 1954 Colonoscopy 1954 Colorectal Cancer Screening 1954 FIT DNA/Cologuard 1954 FIT 1954 FOBT 1954 Sigmoidoscopy 1954 Hepatitis C Screening 1972 Zoster Vaccines (1 of 2) 2004 RSV Patients and Patients Aged 60 years or older (1 - Risk 60-74 years 1-dose series) 2014 COVID-19 Vaccine ( season) 2024 02/10/2021, 06/28/2020, 05/31/2020 Depression Monitoring 11/16/2024 05/16/2024, 025 Alcohol/Substance Use Screening 01/13/2025 01/14/2024 SDOH Screening 05/16/2025 05/16/2024 Mammogram 08/22/2025 08/23/2023, 07/23/2023 Tobacco Screening 11/01/2025 11/01/2024 Lipid Panel 11/18/2028 11/19/2023, 04/09, 01/30/2022, Additional history exists DTaP/Tdap/Td Vaccines (2 - Td or Tdap) 01/17/2029 01/17/2019 Pneumococcal Vaccine: 50+ Years Completed 04/30/2022 Influenza Vaccine Completed 11/10/2024, , 01/15/2023, Additional history exists HIB Vaccines Aged Out No longer eligi [...] patient's age to complete this topic Meningococcal Vaccine Aged Out No saji mirna eligible based on patient's age to complete this topic RSV under 20 months Aged Out No longe r eligible based on patient's age to complete this topic Rotavirus Vaccines Aged Out No longer eligible based on patient's age to complete this topic Goals Goal Patient Goal Type Associated Problems Recent Progress Patient-Stated? Author Blood Pressure < 150/90 Blood Pressure 150/90(2024 11:24 AM EDT) No Chester Calhoun PharmD Note: No hx CKD/DM Patient will adhere to medication regimen General No Chester Calhoun PharmD Procedures Procedure Name Priority Date/Time Associated Diagnosis [...] EDT Severe persistent asthma with exacerbation (HCC) LIPID PANEL, STANDARD Routine 11/19/2023 9:06 AM EDT Benign essential hypertension Dyslipidemia HM MAMMOGRAPHY Routine 08/23/2023 from Last 3 Months or Most Recently Relevant to Health Maintenance Results * POCT Rapid Influenza B OSOM (12/19/2024 11:38 AM EDT) Rapid Influenza B Ag Negative Negative, Indeterminate Swab 12/19/2024 11:3 8 AM EDT Jie Cordova MD POINT OF CARE TEST ENTER/EDIT ORDERABLES Final Result * POCT Rapid Covid-19 BinaxNOW (12/19/2024 11:37 AM EDT) [facility] Rapid COVID Ag Negative Swab 12/19/2024 11:3 7 AM EDT us Jie Cordova MD POINT OF CARE TEST ENTER/EDIT ORDERABLES Final Result * POCT Rapid Influenza A OSOM (12/19/2024 11:37 AM EDT) [facility] Rapid Influenza A Ag Negative Negative, Indeterminate Swab Nasopharyngeal structure / Unknown 12/19/2024 11:37 AM EDT us Jie Cordova MD POINT OF CARE TEST ENTER/EDIT ORDERABLES Final Result * (ABNORMAL) Respiratory Viral Panel PCR (12/19/2024 11:20 AM EDT) [facility] Adenovirus PCR Not Detected Not Detect. [facility] Bordetella pertussis PCR Not Detected Not Detect. [facility] Comment:Interpret results wi th caution. If B. pertussis isspecifically suspected, additional testing using analternate method is recommended. Bordetella parapertussis PCR Not Detected Not Detect. [facility] Chlamydia pneumoniae PCR Not Detected Not Detect. [facility] Coronavirus 229E PCR Not Detected Not Detect. [facility] Coronavirus HKU1 PCR Not Detected Not Detect. [facility] Coronavirus NL63 PCR Not Detected Not Detect. [facility] Coronavirus OC43 PCR Not Detected Not Detect. [facility] SARS-CoV-2 PCR Not Detected Not Detect. [facility] Comment:SARS-CoV-2 not detec grayson by [...] Influenza A PCR Not Detected Not Detect. [facility] Influenza A Subtype H1 Not Detected Not Detect. [facility] Influenza A H1-2009 PCR Not Detected Not Detect. [facility] Influenza A Subtype H3 Not Detected Not Detect. [facility] Influenza B PCR Not Detected Not Detect. [facility] Human metapneumovirus PCR Not Detected Not Detect. [facility] Rhino/Enterovirus PCR Detected(A) Not Detect. [facility] Mycoplasma pneumoniae PCR Not Detected Not Detect. [facility] Parainfluenza 1 PCR Not Detected Not Detect. [facility] Parainfluenza 2 PCR Not Detected Not Detect. [facility] Parainfluenza 3 PCR Not Detected Not Detect. [facility] Parainfluenza 4 PCR Not Detected Not Detect. [facility] RSV PCR Not Detected Not Detect. [facility] Resp Panel NA Note See Note H [facility] Comment:All results must be correlated with [...] assay is performed by Multiplexed PCR, utilizing [employer]. Swab 12/19/2024 11:2 0 AM EDT 12/19/2024 2:03 PM EDT us Jie Cordova MD LAB BLOOD ORDERABLES Final Re sult [facility] [address] [place] [address] [phone] * (ABNORMAL) Lipid Panel, Standard (11/19/2023 9:06 AM EDT) Triglycerides 118 <150 mg/dL [facility] Comment:Desirable Triglyceri de: less than 150 mg/dLBorderline High Triglyceride 150-199 mg/dLHigh Triglyceride: 200-499 mg/dLVery High Triglyceride: greater than or equal to 5OO mg/dL Cholesterol 194 <200 mg/dL [facility] Comment:Desirable Cholestero l: less than 200 mg/dLBorderline High Cholesterol: 200-239 mg/dLHigh Cholesterol: greater than 239 mg/dL LDL Cholesterol Calculated 113(H) <100 mg/dL [facility] Comment:Desirable LDL: less than 100 mg/dLNear Optimal/Above Optimal LDL: 110- 129 mg/dLBorderline High LDL: 130-159 mg/dLHigh LDL: 160-189 mg/dLVery High LDL: greater than or equal to 190 mg/dL HDL Cholesterol 58 >40 mg/dL [facility] Comment:Desirable HDL: great er than 40 mg/dL Note: This HDL assay may give artificially low results in patients with liver disease. Blood Venous blood specimen / Unknown 11/19/2023 9:06 AM EDT 11/19/2023 2:52 PM EDT us Jie Cordova MD LAB BLOOD ORDERABLES Final Re sult [facility] [address] [place] [phone] * Mammography (08/23/2023) Mammogram BIRADS 1 Normal, Abnormal, BIRADS 1 , BIRADS 2 Anatomical Region Laterality Modality Other us Jie Cordova MD HEALTH MAINTENANCE Final Resu lt from Last 3 Months or Most Recently Relevant to Health Maintenance Insurance MEDICARE Care Teams Sales Agent Relationship Specialty Start Date End Date Jie Cordova MD [address] [place] [id number] PCP - General Family Medicine 03/08/18
== END 2024-12-19 12:59 | disposition home or self-care (01) ==
LOC: HO.XRAY 12:58
PROVIDERS: PCP Pediatrics; Visit Provider Pediatrics
DX: J45.51 Severe persistent asthma with (acute) exacerbation (principal)
CPT/HCPCS: 71046; 87633

== ENCOUNTER → 2024-12-19 15:37 | Outpatient (BNV) | payer MEDICARE, MEDICAID, SELFPAY | PROVIDERS: PCP Pediatrics; Visit Provider Radiology Diagnostic Radiology | DX: J84.9 Interstitial pulmonary disease, unspecified (principal) | CPT/HCPCS: 71046 ==